=== PATIENT | male | born 1985 | race Hispanic/Latino ===

== ENCOUNTER 2021-06-10 17:09 | Emergency (ER) | payer OTHER ==
[~2021-06-10] VITALS: Ht 167.6 cm; Wt 97.5 kg
[2021-06-10] MEDS ORDERED: AZITHROMYCIN250 MG PO (20:27)
== END 2021-06-10 20:47 | disposition home or self-care (01) ==
LOC: FSED 19:53
DX: R05.9 Cough, unspecified (principal); J06.9 Acute upper respiratory infection, unspecified
CPT/HCPCS: 83518; 87400; 99283